=== PATIENT | male | born 1965 | race Caucasian/White ===

== ENCOUNTER → 2016-09-20 | Outpatient (CLI) | payer OTHER | LOC: LAB 09:41 | DX: E78.2 Mixed hyperlipidemia (principal); Z79.899 Other long term (current) drug therapy | CPT/HCPCS: 36415; 80061; 80076 ==

== ENCOUNTER 2020-07-20 13:18 | Inpatient (IN) | payer BC, OTHER ==
[~2020-07-20] VITALS: Ht 177.8 cm; Wt 149.2 kg
[~2020-07-20 13:18] MED LIST: ASPIR 8181 MG PO; COLACE 100MG C100 MG PO; FISH OIL 1,0001 EACH PO; FLAGYL500 MG PO; NITROGLYCERIN6.5 M1 PO; RANEXA500 MG PO; TYLENOL 325MG325 MG PO; ZOCOR 10 MG TAB10 MG PO
[2020-07-20] MEDS ORDERED: FELODIPINE ER5 MG PO (14:23)
[2020-07-20 15:18] LABS: HEMOGLOBIN 14.7 gm/dl (14.0-17.5); RED BLOOD COUNT 5.15 M/UL (4.20-5.50); WHITE BLOOD COUNT 6.8 K/UL (4.5-11.0)
[2020-07-20 15:33] LABS: BUN/CREATININE RATIO 17 (0-10)
[2020-07-20] MEDS ORDERED: LISINOPRIL5 MG PO (16:16)
[2020-07-20] MEDS ORDERED: ASPIRIN81 MG PO (16:17)
[2020-07-20] MEDS ORDERED: FISH OIL 1,0001 EACH PO (16:17)
[2020-07-20] MEDS ORDERED: VENTOLIN HFA 66.7 GM INH (16:17)
[2020-07-21 04:40] LABS: HEMOGLOBIN 13.8 gm/dl (14.0-17.5); WHITE BLOOD COUNT 6.6 K/UL (4.5-11.0)
[2020-07-21 05:15] LABS: BUN/CREATININE RATIO 26 (0-10)
--- NOTE | 2020-07-23 02:34 | NUR ---
7PM SHIFT- PT REFUSES TO WEAR SCDS
[2020-07-23 03:54] LABS: HEMOGLOBIN 14.4 gm/dl (14.0-17.5); RED BLOOD COUNT 5.08 M/UL (4.20-5.50); WHITE BLOOD COUNT 7.7 K/UL (4.5-11.0)
[2020-07-23 04:37] LABS: BUN/CREATININE RATIO 21 (0-10)
[2020-07-24 03:34] LABS: HEMOGLOBIN 14.3 gm/dl (14.0-17.5); RED BLOOD COUNT 4.99 M/UL (4.20-5.50)
[2020-07-24 03:59] LABS: BUN/CREATININE RATIO 20 (0-10)
[2020-07-24 04:07] LABS: WHITE BLOOD COUNT 9.9 K/UL (4.5-11.0)
[2020-07-25 06:31] LABS: BUN/CREATININE RATIO 21 (0-10)
[2020-07-26 06:20] LABS: RED BLOOD COUNT 5.3 M/UL (4.20-5.50); WHITE BLOOD COUNT 11.6 K/UL (4.5-11.0)
[2020-07-26 06:47] LABS: BUN/CREATININE RATIO 24 (0-10)
[2020-07-28 04:16] LABS: HEMOGLOBIN 12.8 gm/dl (14.0-17.5); RED BLOOD COUNT 4.59 M/UL (4.20-5.50); WHITE BLOOD COUNT 14.8 K/UL (4.5-11.0)
[2020-07-28 04:26] LABS: BUN/CREATININE RATIO 21 (0-10)
[2020-07-29 03:39] LABS: HEMOGLOBIN 12.7 gm/dl (14.0-17.5); RED BLOOD COUNT 4.55 M/UL (4.20-5.50); WHITE BLOOD COUNT 16.5 K/UL (4.5-11.0)
[2020-07-29 04:01] LABS: BUN/CREATININE RATIO 21 (0-10)
[2020-07-31 02:57] LABS: RED BLOOD COUNT 4.63 M/UL (4.20-5.50); WHITE BLOOD COUNT 16.2 K/UL (4.5-11.0)
[2020-07-31 03:28] LABS: BUN/CREATININE RATIO 21 (0-10)
[2020-07-31] MEDS ORDERED: FAMOTIDINE20 MG PO (09:20)
[2020-07-31] MEDS ORDERED: DECADRON6 MG PO (09:20)
[2020-07-31] MEDS ORDERED: ELIQUIS 5 MG TAB5 MG PO (09:20)
== END 2020-07-31 12:28 | disposition home or self-care (01) | DRG 177 ==
LOC: ER1 13:18 → MED SURG 4 15:44 → ZEROF 15:44 → MED SURG 4 07-21 18:42
PROVIDERS: Internal Medicine; Internal Medicine Pulmonary Disease; Preventive Medicine Occupational Medicine; ADMIT Family Medicine
PROC: 8E0ZXY6 Isolation (ICD-10-PCS; principal; 2020-07-20)
PROC: XW033E5 Introduction of Remdesivir Anti-infective into Peripheral Vein, Percutaneous Approach, New Technology Group 5 (ICD-10-PCS; 2020-07-20)
DX: U07.1 COVID-19 (principal); J12.82 Pneumonia due to coronavirus disease 2019; J80 Acute respiratory distress syndrome; J15.9 Unspecified bacterial pneumonia; Z68.42 Body mass index [BMI] 45.0-49.9, adult; N17.9 Acute kidney failure, unspecified; I10 Essential (primary) hypertension; I25.10 Atherosclerotic heart disease of native coronary artery without angina pectoris; E66.01 Morbid (severe) obesity due to excess calories; I73.9 Peripheral vascular disease, unspecified; M19.90 Unspecified osteoarthritis, unspecified site; E87.70 Fluid overload, unspecified; E78.5 Hyperlipidemia, unspecified; K59.00 Constipation, unspecified; Z87.891 Personal history of nicotine dependence; Z86.718 Personal history of other venous thrombosis and embolism; Z82.49 Family history of ischemic heart disease and other diseases of the circulatory system; Z88.8 Allergy status to other drugs, medicaments and biological substances; Z79.82 Long term (current) use of aspirin; Z79.899 Other long term (current) drug therapy
CPT/HCPCS: 36415; 36600; 71045; 80048; 80053; 81001; 82550; 82553; 82728; 82803; 83605; 83615; 83690; 83735; 83874; 83880; 84100; 84484; 85025; 85027; 85379; 85384; 85610; 85652; 85730; 86140; 87081; 87086; 90471; 93005; 94640; 94664; 94760; 96365; 96366; 96367; 96372; 96375; 96376; 99285; J0456; J1100; J1205; J1650; J1940; J2543; J7030; J7050

== ENCOUNTER → 2020-08-28 | Outpatient (CLI) | payer BC, OTHER ==
[~2020-08-28] MED LIST changes: +ASPIRIN81 MG PO; +DECADRON6 MG PO; +ELIQUIS 5 MG TAB5 MG PO; +FAMOTIDINE20 MG PO; +FELODIPINE ER5 MG PO; +LISINOPRIL5 MG PO; +VENTOLIN HFA 66.7 GM INH
== END ==
LOC: EXRD 14:11
DX: R06.02 Shortness of breath (principal); R91.8 Other nonspecific abnormal finding of lung field
CPT/HCPCS: 71046

== ENCOUNTER → 2020-08-30 | Outpatient (CLI) | payer BC, OTHER | LOC: RT 08:00 | DX: R09.02 Hypoxemia (principal) | CPT/HCPCS: 36600; 82803 ==

== ENCOUNTER → 2020-09-01 | Outpatient (CLI) | payer BC, OTHER | LOC: KOH-I 14:52 | DX: J84.10 Pulmonary fibrosis, unspecified (principal); Z86.16 Personal history of COVID-19; S30.1XXA Contusion of abdominal wall, initial encounter | CPT/HCPCS: 71250; J3010 ==

== ENCOUNTER → 2020-10-04 | Outpatient (CLI) | payer BC, OTHER | LOC: EXRD 14:29 | DX: J84.89 Other specified interstitial pulmonary diseases (principal); B94.8 Sequelae of other specified infectious and parasitic diseases; J18.9 Pneumonia, unspecified organism | CPT/HCPCS: 71046 ==

== ENCOUNTER → 2020-10-15 | Outpatient (CLI) | payer OTHER | LOC: SLEEP 10:46 | DX: G47.30 Sleep apnea, unspecified (principal) | CPT/HCPCS: 95810 ==

== ENCOUNTER → 2020-11-03 | Outpatient (CLI) | payer OTHER | LOC: RT 06:53 | DX: R09.02 Hypoxemia (principal) | CPT/HCPCS: 36600; 82803 ==

== ENCOUNTER → 2020-11-03 | Outpatient (CLI) | payer OTHER | LOC: KOH-I 12:48 | DX: J84.89 Other specified interstitial pulmonary diseases (principal) | CPT/HCPCS: 71250 ==

== ENCOUNTER → 2021-02-14 | Outpatient (CLI) | payer SELFPAY | LOC: HEART 5 15:31 | DX: J84.89 Other specified interstitial pulmonary diseases (principal); R19.00 Intra-abdominal and pelvic swelling, mass and lump, unspecified site; F10.10 Alcohol abuse, uncomplicated; J30.9 Allergic rhinitis, unspecified; M19.90 Unspecified osteoarthritis, unspecified site; R94.2 Abnormal results of pulmonary function studies; Z87.891 Personal history of nicotine dependence | CPT/HCPCS: 94010 ==

== ENCOUNTER → 2021-09-06 | Outpatient (CLI) | payer BC | LOC: HEART 5 12:44 | DX: R60.9 Edema, unspecified (principal); I51.7 Cardiomegaly; I27.20 Pulmonary hypertension, unspecified | CPT/HCPCS: 93306 ==